=== PATIENT | female | born 1985 | race Caucasian/White ===

== ENCOUNTER → 2017-02-25 | Outpatient (CLI) | payer OTHER ==
--- NOTE | 2017-02-26 08:54 | RAD ---
Study: Frontal and Lateral Views of the Chest. Indication: ACUTE BRONCHITIS Comparison: None. Impression: Heart size normal. Lungs clear. No acute osseous abnormality. Electronically signed by: Franck Hood MD 02/26/2017 8:52 AM [facility]
== END | disposition home or self-care (01) ==
LOC: RAD 12:10
PROVIDERS: ATTEND Nurse Practitioner Family
DX: J20.9 Acute bronchitis, unspecified (principal)

== ENCOUNTER 2019-11-12 17:05 | Emergency (ER) | payer SELFPAY ==
[2019-11-12] MEDS ORDERED: ACETAMINOPHEN W/COD #3 TAB 1 EA TAB PO ONE (17:28)
--- NOTE | 2019-11-12 17:30 | ED.PDOC ---
History of Present Illness - General Chief Complaint: ENT Problem Stated Complaint: Right ear pain Time Seen by Provider: 11/12/19 17:25 Source: patient, RN notes reviewed, Vital Signs reviewed Exam Limitations: no limitations - History of Present Illness Initial Comments: Patient is a 34-year-old female with no significant past medical history who presents the ED for 10-day history of right ear pain. States right ear has felt full for the past 10 days, then today she had increased pain to the right ear and noticed green and yellow-colored discharge whenever she placed a Q-tip in her ear. She denies fever, sore throat, cough or congestion. She has been swimming a few times this summer but not daily. Has taken [id number] pain medications without relief. Allergies/Adverse Reactions: Allergies Latex Allergy (Verified 11/12/19 17:28) Nitrofurantoin [From Macrobid] Allergy (Verified 11/12/19 17:28) Trazodone Adverse Reaction (Verified 11/12/19 17:28) Home Medications: Ambulatory Orders Dc/Poly/Hc Otic Susp [Cortisporin Otic Susp] 1 drop OTIC Q4H #1 bttl 11/12/19 Quetiapine Fumarate [Seroquel] 25 mg PO DAILY 11/12/19 Venlafaxine HCl [Venlafaxine HCl ER] 150 mg PO DAILY 11/12/19 hydrOXYzine PAMOATE [Vistaril] 25 mg PO DAILY 11/12/19 Review of Systems - Review of Systems Constitutional: Denies: chills, fever, weakness EENTM: States: ear pain, ear discharge. Denies: nose congestion, throat pain, mouth pain Respiratory: Denies: cough, short of breath Cardiology: Denies: edema, palpitations, syncope Gastrointestinal/Abdominal: Denies: diarrhea, nausea, vomiting Genitourinary: States: no symptoms reported Musculoskeletal: Denies: back pain, neck pain Neurological: Denies: headache, paresthesia All other Systems: Reviewed and Negative Past Medical History (General) - Patient Medical History Hx Congestive Heart Failure: No Hx Diabetes: No Hx MRSA: Yes - Toe 2006 MRSA Source:: Wound - Vaccination History Hx Tetanus, Diphtheria Vaccination: No Hx Influenza Vaccination: No Hx Pneumococcal Vaccination: No - Social History Hx Tobacco Use: No Hx Alcohol Use: No Hx Substance Use: No Hx Substance Use Treatment: No Hx Depression: Yes Family Medical History - Family History Mother Family History: Unknown Living Status: Still Living Hx Family;Other: thyroid disorder Physical Exam - Physical Exam General Appearance: Alert, Comfortable, No apparent distress Throat Exam: other - Right ear has tragal tenderness. External canal has edema, erythema and small amount of discharge. TM is partially obscured, but has no erythema. Left ear is within normal limits. Oropharynx has no erythema edema or exudates. Neck: non-tender, full range of motion, supple Cardiovascular/Respiratory: regular rate, rhythm, normal peripheral pulses, normal breath sounds, no respiratory distress Abdominal Exam: non-tender Neurologic: no motor/sensory deficits, alert, normal mood/affect Skin Exam: normal color, warm/dry Progress - Progress Progress: 11/12/19 17:41 Patient presents the ED with right ear pain for the last 10 days and noticed discharge from the right ear canal today. She has no fever, cough, sore throat or congestion. On exam it is consistent with otitis externa. Discussed with patient antibiotic drops and keep water out of her ear. I have instructed her on antibiotic drops and will follow-up with her PCP in 1 to 2 days for recheck. Strict return precautions given. Departure - Departure Clinical Impression: Otalgia of right ear Time of Disposition: 17:32 Disposition: Discharge to Home or Self Care Departure Forms: ED Discharge - Pt. Copy, Patient Portal Self Enrollment Instructions: DI for Ear Pain-Adult, Outer Ear Infection (DC) Diet: resume usual diet Activity: increase activity as tolerated Referrals: Kushal Garland MD [Primary Care Provider] - 1-2 Days Prescriptions: Dc/Poly/Hc Otic Susp [Cortisporin Otic Susp] 1 drop OTIC Q4H #1 bttl Acetaminophen W/ Codeine [Tylenol W/ CODEINE #3] 1 tablet PO Q6H PRN #20 PRN Reason: Pain Home Medications: Ambulatory Orders Cd/Poly/Hc Otic Susp [Cortisporin Otic Susp] 1 drop OTIC Q4H #1 bttl 11/12/19 Quetiapine Fumarate [Seroquel] 25 mg PO DAILY 11/12/19 Venlafaxine HCl [Venlafaxine HCl ER] 150 mg PO DAILY 11/12/19 hydrOXYzine PAMOATE [Vistaril] 25 mg PO DAILY 11/12/19
[2019-11-12 17:39] VITALS: BP 133/83; TEMP 97.8; O2SAT 98
== END 2019-11-12 17:45 | disposition home or self-care (01) ==
LOC: ER 17:05
DX: H92.01 Otalgia, right ear (principal)

== ENCOUNTER 2020-02-09 21:13 | Emergency (ER) | payer SELFPAY ==
--- NOTE | 2020-02-09 21:55 | RAD ---
EXAM DESCRIPTION: XR Chest,1 View CLINICAL HISTORY: Cough TECHNIQUE: Single frontal view of the chest is submitted. COMPARISON: 02/25/2017 FINDINGS: Heart: The cardiothoracic silhouette is within normal limits. Lungs: No focal consolidation. Mediastinum: Unremarkable Pleura: No appreciable effusion. No pneumothorax. Bones: Intact Upper abdomen: Unremarkable IMPRESSION: No acute disease. Electronically signed by: Harvey Jones MD 02/09/2020 9:53 PM CDT
--- NOTE | 2020-02-09 22:47 | ED.PDOC ---
History of Present Illness - General Chief Complaint: General Stated Complaint: Sore throat Time Seen by Provider: 02/09/20 21:55 Source: patient, RN notes reviewed, Vital Signs reviewed Exam Limitations: no limitations - History of Present Illness Initial Comments: Patient is a 34-year-old white female who presents with complaints of body aches, left earache, fever, cough, sore throat and runny nose for the last 4 to 5 days. It is getting worse. Nothing makes it better. Sore throat is worse with cough. The sore throat is moderate in intensity and burning in nature. Timing/Duration: other - 4 days Severity: moderate Improving Factors: nothing Worsening Factors: other - Coughing Associated Symptoms: cough, fever/chills Allergies/Adverse Reactions: Allergies Latex Allergy (Verified 11/12/19 17:28) Nitrofurantoin [From Macrobid] Allergy (Verified 11/12/19 17:28) Trazodone Adverse Reaction (Verified 11/12/19 17:28) Home Medications: Ambulatory Orders Dc/Poly/Hc Otic Susp [Cortisporin Otic Susp] 1 drop OTIC Q4H #1 bttl 11/12/19 Quetiapine Fumarate [Seroquel] 25 mg PO DAILY 11/12/19 Venlafaxine HCl [Venlafaxine HCl ER] 150 mg PO DAILY 11/12/19 hydrOXYzine PAMOATE [Vistaril] 25 mg PO DAILY 11/12/19 Amoxicillin & Pot Clavulanate [Augmentin Tab] 875 mg PO BID #19 tab 02/09/20 Review of Systems - Review of Systems Constitutional: States: see HPI, chills, fever. Denies: malaise, weakness EENTM: States: see HPI, ear pain, nose congestion, throat pain. Denies: eye pain, blurred vision, double vision, ear discharge, throat swelling Respiratory: States: see HPI, cough. Denies: short of breath, wheezing Cardiology: States: no symptoms reported. Denies: chest pain, palpitations, syncope Gastrointestinal/Abdominal: States: no symptoms reported. Denies: abdominal pain, diarrhea, nausea, vomiting Genitourinary: States: no symptoms reported. Denies: dysuria, frequency Musculoskeletal: States: back pain, joint pain Skin: States: no symptoms reported. Denies: change in color, rash Neurological: States: no symptoms reported. Denies: headache, tingling, tremors, weakness Endocrine: States: no symptoms reported. Denies: increased hunger, increased thirst, increased urine Hematologic/Lymphatic: States: no symptoms reported. Denies: blood clots, easy bleeding All other Systems: No Change from Baseline Past Medical History (General) - Patient Medical History Hx Seizures: No Hx Stroke: No Hx Dementia: No Hx Asthma: No Hx of COPD: No Hx Cardiac Disorders: No Hx Congestive Heart Failure: No Hx Pacemaker: No Hx Hypertension: No Hx Thyroid Disease: No Hx Diabetes: No Hx Gastroesophageal Reflux: No Hx Renal Disease: No Hx Cancer: No Hx of HIV: No Hx Hepatitis C: No Hx MRSA: Yes MRSA Source:: Wound Surgical History: appendectomy, cholecystectomy, tonsillectomy, other - Vaccination History Hx Tetanus, Diphtheria Vaccination: No Hx Influenza Vaccination: No Hx Pneumococcal Vaccination: No - Social History Hx Tobacco Use: Yes - Half a pack a day Hx Chewing Tobacco Use: No Hx Alcohol Use: No Hx Substance Use: No Hx Substance Use Treatment: No Hx Depression: Yes Feels Threatened In Home Enviroment: No Feels Threatened In a Relationship: No Hx Physical Abuse: No Hx Emotional Abuse: No Hx Suspected Abuse: No - Female History Patient is a Female of Child Bearing Age (10 -59 yrs old): Yes Patient : No - Triage Comment ED Triage Comment: The patient was alert and oriented times 4 and complained of sore throat, sinus pressure and left ear pain. She did not appear in distress and had denied nausea and vomiting at the time of assessment. She denied fever or being exposed to COVID. She had no other noted complaints at the time of assessment. Family Medical History - Family History Mother Family History: Unknown Living Status: Still Living Hx Family;Other: thyroid disorder Physical Exam - Physical Exam General Appearance: Alert, Anxious, Obese, Restless, Well Developed, Well Hydrated, Well Nourished Eye Exam: bilateral normal Ears, Nose, Throat: hearing grossly normal, abnormal TM (L) - Bulging left TM with fluid behind the ear consistent with otitis media., nasal congestion Neck: non-tender, full range of motion, supple Respiratory: chest non-tender, no respiratory distress, no accessory muscle use, rhonchi Cardiovascular/Chest: normal peripheral pulses, no edema, no gallop, no JVD, no murmur, tachycardia Peripheral Pulses: radial,right: 2+, radial,left: 2+ Gastrointestinal/Abdominal: normal bowel sounds, non tender, soft Back Exam: normal inspection, no CVA tenderness, no vertebral tenderness Extremity: normal range of motion, non-tender, normal inspection 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 Progress - Progress Progress: Differential diagnosis: Otitis media, strep pharyngitis, COVID-19, pneumonia among others. 02/09/20 22:54 Chest x-ray is negative for pneumonia, influenza is negative, COVID-19 testing is negative, strep testing is negative. Patient does have a left TM that is bulging with fluid behind it consistent with otitis media. Plan on treating with antibiotics. I discussed plan of care with the patient and she voices understanding and agreement. Mina Quesada M.D. #[id number] - Results/Orders Results/Orders: 02/09/20 21:30 STREP A SCREEN CULTURE Stat Laboratory Results - last 24 hr 02/09/20 21:30 Group A Strep Rapid Negative Covid 19: Negative Influenza A: Negative Influenza B: Negative EXAM DESCRIPTION: XR Chest,1 View CLINICAL HISTORY: Cough TECHNIQUE: Single frontal view of the chest is submitted. COMPARISON: 02/25/2017 FINDINGS: Heart: The cardiothoracic silhouette is within normal limits. Lungs: No focal consolidation. Mediastinum: Unremarkable Pleura: No appreciable effusion. No pneumothorax. Bones: Intact Upper abdomen: Unremarkable IMPRESSION: No acute disease. Electronically signed by: Harvey Jones MD 02/09/2020 9:53 PM CDT Departure - Departure Clinical Impression: Tachycardia Otitis media Qualifiers: Otitis media type: suppurative Chronicity: acute Laterality: left Recurrence: non-recurrent Spontaneous tympanic membrane rupture: without spontaneous rupture Qualified Code(s): H66.002 - Acute suppurative otitis media without spontaneous rupture of ear drum, left ear Time of Disposition: 22:57 Disposition: Discharge to Home or Self Care Condition: Good Departure Forms: ED Discharge - Pt. Copy, Patient Portal Self Enrollment Instructions: Ear Infections (Otitis Media) in Children (DC) Diet: resume usual diet Activity: increase activity as tolerated Referrals: Kushal Garland MD [Primary Care Provider] - 1 Week Prescriptions: Amoxicillin & Pot Clavulanate [Augmentin Tab] 875 mg PO BID #19 tab Home Medications: Ambulatory Orders Dc/Poly/Hc Otic Susp [Cortisporin Otic Susp] 1 drop OTIC Q4H #1 bttl 11/12/19 Quetiapine Fumarate [Seroquel] 25 mg PO DAILY 11/12/19 Venlafaxine HCl [Venlafaxine HCl ER] 150 mg PO DAILY 11/12/19 hydrOXYzine PAMOATE [Vistaril] 25 mg PO DAILY 11/12/19 Amoxicillin & Pot Clavulanate [Augmentin Tab] 875 mg PO BID #19 tab 02/09/20
[2020-02-09 23:06] VITALS: BP 110/74; TEMP 98.3; O2SAT 99
== END 2020-02-09 23:05 | disposition home or self-care (01) ==
LOC: ER 21:13
DX: H66.002 Acute suppurative otitis media without spontaneous rupture of ear drum, left ear (principal); R00.0 Tachycardia, unspecified; F17.200 Nicotine dependence, unspecified, uncomplicated; Z20.828 Contact with and (suspected) exposure to other viral communicable diseases